=== PATIENT | female | born 1960 | race Two or more races ===

== ENCOUNTER 2016-05-28 13:07 | Inpatient (IN) | payer OTHER ==
[2016-05-28 14:00] VITALS: BMI 22.4
--- NOTE | 2016-05-28 18:55 | HP ---
CIWA Score - CIWA Score Nausea/Vomitin Muscle Tremors: 3 Anxiety: 3 Agitation: 3 Paroxysmal Sweats: 2 Orientation: 0-Oriented Tacttile Disturbances: 2-Mild Itch/Numbness/Burn Auditory Disturbances: 2-Mild Harshness/Frighten Visual Disturbances: 2-Mild Sensitivity Headache: 2-Mild CIWA-Ar Total Score: 22 Admission ROS BHS - HPI Chief Complaint: i need help to stop drinking alcohol,marijuana,cocaine Allergies/Adverse Reactions: Allergies Allergy/AdvReac Type Severity Reaction Status Date / Time No Known Allergies Allergy Verified 05/28/16 18:40 History of Present Illness: this 55 years old female with alcohol dependence,marijuana,cocaine,withdrawal symptom,last detox 2016 sleep hollow syncope weight loss nicotine dependence hiv since 08/22 longest period of sobriety 1 year and 6 months bipolar disorder and depression Exam Limitations: No Limitations - Ebola screening Have you traveled outside of the country in the last 21 days: No Have you been sick,other than usual withdrawal symptoms: No - Review of Systems Constitutional: Loss of Appetite, Malaise, Night Sweats, Changes in sleep, Unintentional Wgt. Loss EENT: reports: Nose Congestion Respiratory: reports: No Symptoms reported, Other (asthma) Cardiac: reports: No Symptoms Reported GI: reports: Diarrhea, Nausea, Vomiting, Abdominal cramping : reports: No Symptoms Reported Musculoskeletal: reports: Back Pain, Muscle Pain Integumentary: reports: Dryness Neuro: reports: Headache, Tremors Endocrine: reports: No Symptoms Reported Hematology: reports: Anemia Psychiatric: reports: Depressed, other (bipolar disorder) Patient History - Patient Medical History Hx Anemia: Yes (no med) Hx Asthma: Yes (on albuterol inhaler) Hx Chronic Obstructive Pulmonary Disease (COPD): No Hx Cancer: No Hx Cardiac Disorders: No Hx Congestive Heart Failure: No Hx Hypertension: No Hx Hypercholesterolemia: No Hx Pacemaker: No HX Cerebrovascular Accident: No Hx Seizures: No Hx Dementia: No Hx Diabetes: No Hx Gastrointestinal Disorders: No Hx Liver Disease: No Hx Genitourinary Disorders: No Hx Sexually Transmitted Disorders: No Hx Renal Disease (ESRD): No Hx Thyroid Disease: No Hx Human Immunodeficiency Virus (HIV): Yes (since 08/2006 on med) Hx Hepatitis C: No Hx Depression: Yes Hx Suicide Attempt: Yes Hx Bipolar Disorder: Yes (walk in the moving traffic) Other Medical History: no suicidal,no homicidal - Patient Surgical History Hx Orthopedic Surgery: Yes (fx of right ankle 1988 post fall) - PPD History Previous Implant?: Yes Documented Results: Negative w/o proof Implanted On Prior R Admission?: No PPD to be Administered?: Yes - Reproductive History Patient is a Female of Child Bearing Age (11 -55 yrs old): Yes Patient : No - Smoking Cessation Smoking history: Current every day smoker Have you smoked in the past 12 months: Yes Aproximately how many cigarettes per day: 7 Hx Chewing Tobacco Use: No Initiated information on smoking cessation: Yes 'Breaking Loose' booklet given: 05/28/16 - Substance & Tx. History Hx Alcohol Use: Yes Hx Substance Use: Yes Substance Use Type: Alcohol, Cocaine, Marijuana - Substances Abused Alcohol Route: Oral Frequency: Daily Amount used: 1 pint of tomas/2 of 6 packs of 12 ozs Age of first use: 18 Date of Last Use: 05/28/16 Marijuana/Hashish Route: Smoking Frequency: Daily Amount used: 10$ Age of first use: 18 Date of Last Use: 05/27/16 Cocaine Route: Smoking Frequency: 1-3 times last 30 days Amount used: 60$ Age of first use: 40 Date of Last Use: 05/27/16 Family Disease History - Family Disease History Family Disease History: Other: Father (alcohol,), Mother (alcohol) Admission Physical Exam BHS - Vital Signs Vital Signs: Vital Signs - 24 hr 05/28/16 13:57 Temperature 98.0 F Pulse Rate 103 H Respiratory 20 Rate Blood Pressure 130/86 - Physical General Appearance: Yes: Moderate Distress, Thin, Tremorous, Irritable, Sweating , Anxious HEENTM: Yes: Normal ENT Inspection, ISI, Pharynx Normal Respiratory: Yes: Lungs Clear, Normal Breath Sounds, No Respiratory Distress Neck: Yes: Supple, Trachea in good position Breast: Yes: Breast Exam Deferred Cardiology: Yes: Within Normal Limits, Regular Rhythm, Regular Rate, S1, S2 Abdominal: Yes: Within Normal Limits, Normal Bowel Sounds, Non Tender, Flat, Soft Genitourinary: Yes: Within Normal Limits Back: Yes: Within Normal Limits, Muscle Spasm Musculoskeletal: Yes: Back pain, Muscle Pain Extremities: Yes: Normal Range of Motion, Tremors Neurological: Yes: 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 II-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 NML intact, Fully Oriented, Alert, Motor Strength 5/5 Integumentary: Yes: Dry Lymphatic: Yes: Within Normal Limits - Diagnostic (1) Alcohol dependence with uncomplicated withdrawal Current Visit: Yes Status: Acute (2) Cocaine dependence Current Visit: Yes Status: Acute (3) Cannabis dependence Current Visit: Yes Status: Acute (4) Syncope Current Visit: Yes Status: Acute (5) Weight loss Current Visit: Yes Status: Acute (6) Nicotine dependence Current Visit: Yes Status: Acute (7) HIV (human immunodeficiency virus infection) Current Visit: Yes Status: Acute (8) Bipolar disorder Current Visit: Yes Status: Acute (9) Depression Current Visit: Yes Status: Acute (10) Asthma Current Visit: Yes Status: Acute (11) Anemia Current Visit: Yes Status: Acute Cleared for Admission S - Detox or Rehab [facility] Level of Care: Medically Managed Detox Regimen/Protocol: Librium [facility] Breath Alcohol Content Breath Alcohol Content: 0.231 Urine Pregancy Test - Result Urine Test Results: Negative- NO Line Present Urine Drug Screen - Results Drug Screen Negative: No Urine Drug Screen Results: FREIDS-Cocaine
[2016-05-28] MEDS ORDERED: MENTHOL/PHENOL 1 EACH UD MM PRN (19:14)
[2016-05-28] MEDS ORDERED: MAGNESIUM HYDROX 2400MG/30ML ORAL SUSPENSION 30 ML CUP PO PRN (19:14)
[2016-05-28] MEDS ORDERED: LOPERAMIDE HCL 2 MG CAPSULE PO PRN (19:14)
[2016-05-28] MEDS ORDERED: guaiFENesin/D-METHORPHAN HB 10 ML UNIT-DOSE CUPS PO PRN (19:14)
[2016-05-28] MEDS ORDERED: ACETAMINOPHEN 325 MG TABLET (FP) PO PRN (19:14)
[2016-05-28] MEDS ORDERED: hydrOXYzine PAMOATE 25 MG CAPSULE (FP) PO PRN (19:14)
[2016-05-28] MEDS ORDERED: chlordiazePOXIDE HCL 25 MG CAPSULE PO PRN (19:14)
[2016-05-28] MEDS ORDERED: chlordiazePOXIDE HCL 25 MG CAPSULE PO ONE (19:14)
[2016-05-28] MEDS ORDERED: MAG HYDROX/AL HYDROX/SIMETH 30 ML UNIT-DOSE CUP PO PRN (19:14)
[2016-05-28] MEDS ORDERED: P-EPHED 60MG/TRIPROLIDI 2.5MG TABLET PO PRN (19:14)
[2016-05-28] MEDS ORDERED: diphenhydrAMINE HCL 50 MG CAPSULE PO PRN (19:14)
[2016-05-28] MEDS ORDERED: IBUPROFEN 400 MG TABLET (FP) PO PRN (19:14)
[2016-05-28] MEDS ORDERED: MAGNESIUM CITRATE 300 ML BOTTLE PO PRN (19:14)
[2016-05-28] MEDS ORDERED: NICOTINE POLACRILEX 2 MG GUM BC PRN (19:14)
[2016-05-28] MEDS ORDERED: diphenhydrAMINE HCL 25 MG CAPSULE (FP) PO SCH (19:30)
[2016-05-28] MEDS: CYPROHEPTADINE HCL 4 MG TABLET PO SCH (22:16)
[2016-05-28] MEDS: chlordiazePOXIDE HCL 25 MG CAPSULE PO SCH (22:16)
[2016-05-28] MEDS: THIAMINE HCL 100 MG TABLET (FP) PO SCH (22:17)
[2016-05-29 00:39] LABS: URINE APPEARANCE CLEAR; URINE BILIRUBIN NEGATIVE (NEGATIVE); URINE BLOOD NEGATIVE (NEGATIVE); URINE COLOR COLORLESS; URINE GLUCOSE (UA) NEGATIVE (NEGATIVE); URINE KETONE NEGATIVE (NEGATIVE); URINE LEUK ESTERASE NEGATIVE (NEGATIVE); URINE NITRITE NEGATIVE (NEGATIVE); URINE PROTEIN NEGATIVE (NEGATIVE); URINE UROBILINOGEN NEGATIVE E.U./dl (0.2-1.0)
[2016-05-29] MEDS: chlordiazePOXIDE HCL 25 MG CAPSULE PO SCH ×4 (06:26→22:07)
[2016-05-29] MEDS: CYPROHEPTADINE HCL 4 MG TABLET PO SCH ×4 (06:31→22:07)
[2016-05-29] MEDS: AMOX TR/POT CLAV 875MG/125MG TABLETS (FP) PO SCH ×2 (09:48→18:03)
[2016-05-29] MEDS ORDERED: AMOX TR/POT CLAV 875MG/125MG TABLETS (FP) PO SCH (10:00)
[2016-05-29] MEDS: ATAZANAVIR SO4 300 MG CAPSULE PO SCH (10:12)
[2016-05-29] MEDS: SULFAMETHOXAZOLE/TRIMETHOPRIM 800MG/160MG D.S. TABLET PO SCH (10:12)
[2016-05-29] MEDS: PRENATAL VITAMINS W/ FOLIC ACID TABLET (FP) PO SCH (10:12)
[2016-05-29 10:20] LABS: MCH 28.8 pg (25.7-33.7); MCHC 31.8 g/dl (32.0-36.0); MEAN CELL VOLUME 90.8 fl (80-96); MEAN PLT VOLUME 9.5 fl (7.5-11.1); PLATELET COUNT 146 K/MM3 (134-434); RDW 13.9 % (11.6-15.6); WHITE BLOOD COUNT 4.7 K/mm3 (4.0-10.0)
--- NOTE | 2016-05-29 10:22 | EKG ---
Test Reason : Blood Pressure : / mmHG Vent. Rate : 075 BPM Atrial Rate : 075 BPM P-R Int : 144 ms QRS Dur : 088 ms QT Int : 410 ms P-R-T Axes : 066 035 041 degrees QTc Int : 457 ms NORMAL SINUS RHYTHM T WAVE ABNORMALITY, CONSIDER ANTERIOR ISCHEMIA POOR R WAVE PROGRESSION ABNORMAL ECG NO PREVIOUS ECGS AVAILABLE Confirmed by JENNI WANG MD ([id number]) on 05/29/2016 10:22:23 AM Referred By: Confirmed By:JENNI WANG MD
[2016-05-29 12:03] LABS: ALBUMIN 3.4 g/dl (3.4-5.0); ALK PHOS 123 U/L (45-117); ANION GAP 10 (8-16); BILIRUBIN,TOTAL 1.2 mg/dL (0.2-1.0); CALCIUM 8.9 mg/dL (8.5-10.1); CO2 29 mmol/L (21-32); CREATININE 0.7 mg/dL (0.55-1.02); GLUCOSE,RANDOM 84 mg/dL (74-106); SGOT/AST 55 U/L (15-37); SGPT/ALT 36 U/L (12-78)
[2016-05-29] MEDS: FLUCONAZOLE 100 MG TABLET (UD) PO SCH (12:10)
[2016-05-29] MEDS: RITONAVIR 100 MG TABLET PO SCH (12:11)
[2016-05-29] MEDS: EMTRICITABINE 200MG/TENOFOVIR 300MG PO SCH (12:11)
--- NOTE | 2016-05-29 13:27 | CONSULT ---
[facility] Psychiatric Consult - Data Date of interview: 05/29/16 Admission source: [facility] Identifying data: First admission to [facility] for this 55 y/o AA female seeking detox treatment for alcohol,cocaind and marjuana dependence.Patient is single,a mother of nine,domiciled,unemployed and supported on Public Assistance. Substance Abuse History: - Smoking Cessation. Smoking history: Current every day smoker. Have you smoked in the past 12 months: Yes. Aproximately how many cigarettes per day: 7. Hx Chewing Tobacco Use: No. Initiated information on smoking cessation: Yes. 'Breaking Loose' booklet given: 05/28/16. - Substance & Tx. History. Hx Alcohol Use: Yes. Hx Substance Use: Yes. Substance Use Type : Alcohol, Cocaine, Marijuana. - Substances Abused. Alcohol. Route: Oral. Frequency: Daily. Amount used: 1 pint of tomas/2 of 6 packs of 12 ozs. Age of first use: 18. Date of Last Use: 05/28/16. Marijuana/Hashish. Route: Smoking. Frequency: Daily. Amount used: 10$. Age of first use: 18. Date of Last Use: 05/27/16. Cocaine. Route: Smoking. Frequency: 1-3 times last 30 days. Amount used: 60$. Age of first use: 40. Date of Last Use: 05/27/16. Confirmed by patient. Medical History: HIV infection since 2006 (on ART agents),bronchial asthma and anemia. Psychiatric History: History of multiple psychiatric hospitalizations.Known to [facility].Diagnosed with Bipolar Disorder.Patient reports that she was followed at the [facility] health clinic in [facility].Dropped out of outpatient treatment months ago.Medications (not taken for months) used to consist of haldol and trazodone.Doses not recalled.Patient Ms Marie admits to a remote history of suicide attempt (deliberate exposure to oncoming traffic) .She declines to resume psychotropic drugs with the exception of detox medications. Physical/Sexual Abuse/Trauma History: Patient denies history of sexual abuse. Additional Comment: Urine Drug Screen Results: FREDIS-Cocaine.Noted. Mental Status Exam - Mental Status Exam Alert and Oriented to: Time, Place, Person Cognitive Function: Good Patient Appearance: Unkempt, Disheveled (noted patches of alopecia) Mood: Hopeful, Euthymic Affect: Appropriate, Normal Range Patient Behavior: Fatigued, Appropriate, Cooperative Speech Pattern: Clear, Appropriate Voice Loudness: Normal Thought Process: Goal Oriented Thought Disorder: Not Present Hallucinations: Denies Suicidal Ideation: Denies Homicidal Ideation: Denies Insight/Judgement: Poor Sleep: Poorly Appetite: Poor, Weight loss Muscle strength/Tone: Normal Gait/Station: Normal Psychiatric Findings - Problem List (White 1, 2,3) (1) Alcohol dependence with uncomplicated withdrawal Current Visit: Yes Status: Acute (2) Cannabis dependence Current Visit: Yes Status: Acute (3) Cocaine dependence Current Visit: Yes Status: Acute (4) Nicotine dependence Current Visit: Yes Status: Acute (5) Substance induced mood disorder Current Visit: Yes Status: Acute (6) Schizoaffective disorder Current Visit: Yes Status: Acute Comment: Self-report.No signs/symptoms elicited in this evaluation.No compliance with treatment for months. (7) Anemia Current Visit: Yes Status: Chronic (8) Asthma Current Visit: Yes Status: Chronic (9) HIV (human immunodeficiency virus infection) Current Visit: Yes Status: Chronic (10) Weight loss Current Visit: Yes Status: Chronic - Initial Treatment Plan Initial Treatment Plan: Psychoeducation.Detoxification.Observation.
--- NOTE | 2016-05-29 13:39 | PN ---
[facility] CIWA - CIWA Score Nausea/Vomitin Muscle Tremors: 3 Anxiety: 3 Agitation: 2 Paroxysmal Sweats: 1-Minimal Palms Moist Orientation: 0-Oriented Tacttile Disturbances: 1-Very Mild Itch/Numbness Auditory Disturbances: 1-Very Mild Visual Disturbances: 1-Very Mild Sensitivity Headache: 2-Mild CIWA-Ar Total Score: 17 BHS Progress Note (SOAP) Subjective: ALERT,IRRITABLE,ANXIOUS,INTERRUPTED SLEEP,TREMOR Objective: 05/29/16 13:37 Vital Signs Temperature 98.2 F 05/29/16 10:29 Pulse Rate 91 H 05/29/16 10:29 Respiratory Rate 20 05/29/16 10:29 Blood Pressure 132/85 05/29/16 10:29 O2 Sat by Pulse Oximetry (%) EKG NSR INVERTED T IN V1 TO V3 NO CHEST PAIN,NO SOB,NO DIZZINESS Laboratory Last Values WBC 4.7 K/mm3 (4.0-10.0) 05/29/16 07:00 RBC 4.42 M/mm3 (3.60-5.2) 05/29/16 07:00 Hgb 12.8 GM/dL (10.7-15.3) 05/29/16 07:00 Hct 40.2 % (32.4-45.2) 05/29/16 07:00 MCV 90.8 fl (80-96) 05/29/16 07:00 MCHC 31.8 g/dl (32.0-36.0) L 05/29/16 07:00 RDW 13.9 % (11.6-15.6) 05/29/16 07:00 Plt Count 146 K/MM3 (134-434) 05/29/16 07:00 MPV 9.5 fl (7.5-11.1) 05/29/16 07:00 Sodium 139 mmol/L (136-145) 05/29/16 07:00 Potassium 4.0 mmol/L (3.5-5.1) 05/29/16 07:00 Chloride 100 mmol/L (98-107) 05/29/16 07:00 Carbon Dioxide 29 mmol/L (21-32) 05/29/16 07:00 Anion Gap 10 (8-16) 05/29/16 07:00 BUN 5 mg/dL (7-18) L 05/29/16 07:00 Creatinine 0.7 mg/dL (0.55-1.02) 05/29/16 07:00 Creat Clearance w eGFR > 60 (>60) 05/29/16 07:00 Random Glucose 84 mg/dL (74-106) 05/29/16 07:00 Calcium 8.9 mg/dL (8.5-10.1) 05/29/16 07:00 Total Bilirubin 1.2 mg/dL (0.2-1.0) H 05/29/16 07:00 AST 55 U/L (15-37) H 05/29/16 07:00 ALT 36 U/L (12-78) 05/29/16 07:00 Alkaline Phosphatase 123 U/L (45-117) H 05/29/16 07:00 Total Protein 8.0 g/dl (6.4-8.2) 05/29/16 07:00 Albumin 3.4 g/dl (3.4-5.0) 05/29/16 07:00 Urine Color Colorless 05/28/16 23:30 Urine Appearance Clear 05/28/16 23:30 Urine pH 6.0 (5.0-8.0) 05/28/16 23:30 Ur Specific [place] 1.001 (1.001-1.035) 05/28/16 23:30 Urine Protein Negative (NEGATIVE) 05/28/16 23:30 Urine Glucose (UA) Negative (NEGATIVE) 05/28/16 23:30 Urine Ketones Negative (NEGATIVE) 05/28/16 23:30 Urine Blood Negative (NEGATIVE) 05/28/16 23:30 Urine Nitrite Negative (NEGATIVE) 05/28/16 23:30 Urine Bilirubin Negative (NEGATIVE) 05/28/16 23:30 Urine Urobilinogen Negative E.U./dl (0.2-1.0) 05/28/16 23:30 Ur Leukocyte Esterase Negative (NEGATIVE) 05/28/16 23:30 RPR Titer Nonreactive (NONREACTIVE) 05/29/16 07:00 Assessment: 05/29/16 13:38 WITHDRAWAL SYMPTOM Plan: CONTINUE DETOX
[2016-05-29] MEDS: THIAMINE HCL 100 MG TABLET (FP) PO SCH (22:07)
[2016-05-30] MEDS: CYPROHEPTADINE HCL 4 MG TABLET PO SCH ×3 (06:38→22:53)
[2016-05-30] MEDS: chlordiazePOXIDE HCL 25 MG CAPSULE PO SCH ×3 (06:38→17:10)
[2016-05-30] MEDS: AMOX TR/POT CLAV 875MG/125MG TABLETS (FP) PO SCH ×2 (07:16→17:08)
[2016-05-30] MEDS: FLUCONAZOLE 100 MG TABLET (UD) PO SCH (10:28)
[2016-05-30] MEDS: SULFAMETHOXAZOLE/TRIMETHOPRIM 800MG/160MG D.S. TABLET PO SCH (10:28)
[2016-05-30] MEDS: RITONAVIR 100 MG TABLET PO SCH (10:28)
[2016-05-30] MEDS: EMTRICITABINE 200MG/TENOFOVIR 300MG PO SCH (10:29)
[2016-05-30] MEDS: ATAZANAVIR SO4 300 MG CAPSULE PO SCH (10:29)
[2016-05-30] MEDS: PRENATAL VITAMINS W/ FOLIC ACID TABLET (FP) PO SCH (10:29)
--- NOTE | 2016-05-30 12:31 | PN ---
S CIWA - CIWA Score Nausea/Vomitin Muscle Tremors: 3 Anxiety: 2 Agitation: 2 Paroxysmal Sweats: 1-Minimal Palms Moist Orientation: 0-Oriented Tacttile Disturbances: 1-Very Mild Itch/Numbness Auditory Disturbances: 1-Very Mild Visual Disturbances: 1-Very Mild Sensitivity Headache: 2-Mild CIWA-Ar Total Score: 16 S Progress Note (SOAP) Subjective: ALERT,IRRITABLE,ANXIOUS,INTERRUPTED SLEEP,TREMOR Objective: 05/30/16 12:30 Vital Signs Temperature 98.6 F 05/30/16 10:11 Pulse Rate 91 H 05/30/16 10:11 Respiratory Rate 20 05/30/16 10:11 Blood Pressure 108/86 05/30/16 10:11 O2 Sat by Pulse Oximetry (%) Laboratory Last Values WBC 4.7 K/mm3 (4.0-10.0) 05/29/16 07:00 RBC 4.42 M/mm3 (3.60-5.2) 05/29/16 07:00 Hgb 12.8 GM/dL (10.7-15.3) 05/29/16 07:00 Hct 40.2 % (32.4-45.2) 05/29/16 07:00 MCV 90.8 fl (80-96) 05/29/16 07:00 MCHC 31.8 g/dl (32.0-36.0) L 05/29/16 07:00 RDW 13.9 % (11.6-15.6) 05/29/16 07:00 Plt Count 146 K/MM3 (134-434) 05/29/16 07:00 MPV 9.5 fl (7.5-11.1) 05/29/16 07:00 Sodium 139 mmol/L (136-145) 05/29/16 07:00 Potassium 4.0 mmol/L (3.5-5.1) 05/29/16 07:00 Chloride 100 mmol/L (98-107) 05/29/16 07:00 Carbon Dioxide 29 mmol/L (21-32) 05/29/16 07:00 Anion Gap 10 (8-16) 05/29/16 07:00 BUN 5 mg/dL (7-18) L 05/29/16 07:00 Creatinine 0.7 mg/dL (0.55-1.02) 05/29/16 07:00 Creat Clearance w eGFR > 60 (>60) 05/29/16 07:00 Random Glucose 84 mg/dL (74-106) 05/29/16 07:00 Calcium 8.9 mg/dL (8.5-10.1) 05/29/16 07:00 Total Bilirubin 1.2 mg/dL (0.2-1.0) H 05/29/16 07:00 AST 55 U/L (15-37) H 05/29/16 07:00 ALT 36 U/L (12-78) 05/29/16 07:00 Alkaline Phosphatase 123 U/L (45-117) H 05/29/16 07:00 Total Protein 8.0 g/dl (6.4-8.2) 05/29/16 07:00 Albumin 3.4 g/dl (3.4-5.0) 05/29/16 07:00 Urine Color Colorless 05/28/16 23:30 Urine Appearance Clear 05/28/16 23:30 Urine pH 6.0 (5.0-8.0) 05/28/16 23:30 Ur Specific [place] 1.001 (1.001-1.035) 05/28/16 23:30 Urine Protein Negative (NEGATIVE) 05/28/16 23:30 Urine Glucose (UA) Negative (NEGATIVE) 05/28/16 23:30 Urine Ketones Negative (NEGATIVE) 05/28/16 23:30 Urine Blood Negative (NEGATIVE) 05/28/16 23:30 Urine Nitrite Negative (NEGATIVE) 05/28/16 23:30 Urine Bilirubin Negative (NEGATIVE) 05/28/16 23:30 Urine Urobilinogen Negative E.U./dl (0.2-1.0) 05/28/16 23:30 Ur Leukocyte Esterase Negative (NEGATIVE) 05/28/16 23:30 RPR Titer Nonreactive (NONREACTIVE) 05/29/16 07:00 Assessment: 05/30/16 12:30 WITHDRAWAL SYMPTOM Plan: CONTINUE DETOX
[2016-05-30] MEDS: chlordiazePOXIDE 5 MG CAPSULE PO SCH (22:17)
[2016-05-30] MEDS: THIAMINE HCL 100 MG TABLET (FP) PO SCH (22:17)
[2016-05-31] MEDS: CYPROHEPTADINE HCL 4 MG TABLET PO SCH ×3 (06:18→21:07)
[2016-05-31] MEDS: chlordiazePOXIDE 5 MG CAPSULE PO SCH ×3 (06:18→17:33)
[2016-05-31] MEDS: AMOX TR/POT CLAV 875MG/125MG TABLETS (FP) PO SCH ×2 (07:28→17:33)
[2016-05-31] MEDS: RITONAVIR 100 MG TABLET PO SCH (10:25)
[2016-05-31] MEDS: EMTRICITABINE 200MG/TENOFOVIR 300MG PO SCH (10:25)
[2016-05-31] MEDS: FLUCONAZOLE 100 MG TABLET (UD) PO SCH (10:26)
[2016-05-31] MEDS: ATAZANAVIR SO4 300 MG CAPSULE PO SCH (10:26)
[2016-05-31] MEDS: SULFAMETHOXAZOLE/TRIMETHOPRIM 800MG/160MG D.S. TABLET PO SCH (10:26)
[2016-05-31] MEDS: PRENATAL VITAMINS W/ FOLIC ACID TABLET (FP) PO SCH (10:26)
--- NOTE | 2016-05-31 16:20 | PN ---
S Progress Note (SOAP) Subjective: Tremor, sweating, interrupted sleep, diarrhea Objective: 05/31/16 16:19 Last Vital Signs Temp Pulse Resp BP Pulse Ox 98.2 F 93 H 16 116/92 05/31/16 14:06 05/31/16 14:06 05/31/16 14:06 05/31/16 14:06 Laboratory Tests 05/28/16 05/29/16 05/29/16 23:30 07:00 07:00 WBC 4.7 RBC 4.42 Hgb 12.8 Hct 40.2 MCV 90.8 MCHC 31.8 L RDW 13.9 Plt Count 146 MPV 9.5 Sodium 139 Potassium 4.0 Chloride 100 Carbon Dioxide 29 Anion Gap 10 BUN 5 L Creatinine 0.7 Creat Clearance w eGFR > 60 Random Glucose 84 Calcium 8.9 Total Bilirubin 1.2 H AST 55 H ALT 36 Alkaline Phosphatase 123 H Total Protein 8.0 Albumin 3.4 Urine Color Colorless Urine Appearance Clear Urine pH 6.0 Ur Specific [place] 1.001 Urine Protein Negative Urine Glucose (UA) Negative Urine Ketones Negative Urine Blood Negative Urine Nitrite Negative Urine Bilirubin Negative Urine Urobilinogen Negative Ur Leukocyte Esterase Negative RPR Titer 05/29/16 07:00 WBC RBC Hgb Hct MCV MCHC RDW Plt Count MPV Sodium Potassium Chloride Carbon Dioxide Anion Gap BUN Creatinine Creat Clearance w eGFR Random Glucose Calcium Total Bilirubin AST ALT Alkaline Phosphatase Total Protein Albumin Urine Color Urine Appearance Urine pH Ur Specific [place] Urine Protein Urine Glucose (UA) Urine Ketones Urine Blood Urine Nitrite Urine Bilirubin Urine Urobilinogen Ur Leukocyte Esterase RPR Titer Nonreactive Labs noted Assessment: 05/31/16 16:19 Withdrawal symptoms Plan: Continue detox
[2016-05-31] MEDS: THIAMINE HCL 100 MG TABLET (FP) PO SCH (21:07)
[2016-05-31] MEDS: chlordiazePOXIDE HCL 10 MG CAPSULE PO SCH (22:43)
[2016-06-01] MEDS: chlordiazePOXIDE HCL 10 MG CAPSULE PO SCH ×2 (05:22→10:59)
[2016-06-01] MEDS: CYPROHEPTADINE HCL 4 MG TABLET PO SCH (05:22)
[2016-06-01] MEDS: AMOX TR/POT CLAV 875MG/125MG TABLETS (FP) PO SCH (07:53)
--- NOTE | 2016-06-01 09:29 | DS ---
[facility] Detox Discharge Summary Admission Date: 05/28/16 Discharge Date: 06/01/16 - History Present History: Alcohol Dependence - Physical Exam Results Vital Signs: Vital Signs Temperature 98.1 F 06/01/16 06:00 Pulse Rate 79 06/01/16 06:00 Respiratory Rate 16 06/01/16 06:00 Blood Pressure 114/78 06/01/16 06:00 O2 Sat by Pulse Oximetry (%) - Treatment Hospital Course: Detox Protocol Followed, Detoxed Safely, Responded well, Discharged Condition Good - Medication Discharge Medications: Ambulatory Orders Amoxicillin/Potassium Clav [Amox-Clav 875-125 mg Tablet] 1 each PO DAILY Atazanavir [Reyataz -] 300 mg PO DAILY 05/28/16 Cyproheptadine HCl 4 mg PO TID 05/28/16 Diphenhydramine HCl [Benadryl -] 25 mg PO Q6H 05/28/16 Emtricitabine/Tenofovir [Truvada] 1 tab PO DAILY 05/28/16 Fluconazole [Diflucan -] 100 mg PO DAILY 05/28/16 Haloperidol [Haldol -] 2 mg PO DAILY 05/28/16 Haloperidol [Haldol -] 5 mg PO HS 05/28/16 Ritonavir [Norvir -] 100 mg PO DAILY 05/28/16 Sulfamethoxazole/Trimethoprim [Bactrim Ds -] 1 tab PO DAILY 05/28/16 Trazodone HCl [Desyrel -] 150 mg PO HS 05/28/16 - Diagnosis (1) Alcohol dependence with uncomplicated withdrawal Current Visit: Yes Status: Chronic (2) Bipolar disorder Current Visit: Yes Status: Chronic Qualifiers: Current episode severity: unspecified (3) Cannabis dependence Current Visit: Yes Status: Chronic (4) Cocaine dependence Current Visit: Yes Status: Chronic Qualifiers: Complication of substance-induced condition: with unspecified complication (5) Nicotine dependence Current Visit: Yes Status: Chronic Qualifiers: Nicotine product type: cigarettes Substance use status: uncomplicated Qualified Code(s): F17.210 - Nicotine dependence, cigarettes, uncomplicated (6) Schizoaffective disorder Current Visit: Yes Status: Acute (7) Asthma Current Visit: Yes Status: Chronic (8) HIV (human immunodeficiency virus infection) Current Visit: Yes Status: Chronic - AMA Did Patient Leave Against Medical Advice: No
[2016-06-01] MEDS: FLUCONAZOLE 100 MG TABLET (UD) PO SCH (10:09)
[2016-06-01] MEDS: PRENATAL VITAMINS W/ FOLIC ACID TABLET (FP) PO SCH (10:09)
[2016-06-01] MEDS: RITONAVIR 100 MG TABLET PO SCH (10:09)
[2016-06-01] MEDS: EMTRICITABINE 200MG/TENOFOVIR 300MG PO SCH (10:09)
[2016-06-01] MEDS: SULFAMETHOXAZOLE/TRIMETHOPRIM 800MG/160MG D.S. TABLET PO SCH (10:10)
[2016-06-01] MEDS: ATAZANAVIR SO4 300 MG CAPSULE PO SCH (10:10)
[2016-06-01 10:33] VITALS: BP 114/87; PULSE 89; TEMP 97.7
== END 2016-06-01 11:37 | disposition home or self-care (01) | DRG 774 ==
LOC: YASAS 13:07 → Y6N 18:46
PROVIDERS: ADMIT Internal Medicine Addiction Medicine; ATTEND Internal Medicine Addiction Medicine
PROC: HZ2ZZZZ Detoxification Services for Substance Abuse Treatment (ICD-10-PCS; principal; 2016-05-28)
DX: F10.230 Alcohol dependence with withdrawal, uncomplicated (principal); F14.20 Cocaine dependence, uncomplicated; F12.20 Cannabis dependence, uncomplicated; F17.210 Nicotine dependence, cigarettes, uncomplicated; F31.9 Bipolar disorder, unspecified; F25.9 Schizoaffective disorder, unspecified; F19.24 Other psychoactive substance dependence with psychoactive substance-induced mood disorder; J45.909 Unspecified asthma, uncomplicated; Z21 Asymptomatic human immunodeficiency virus [HIV] infection status; Z87.898 Personal history of other specified conditions; Z86.79 Personal history of other diseases of the circulatory system; Z86.2 Personal history of diseases of the blood and blood-forming organs and certain disorders involving the immune mechanism
CPT/HCPCS: 36415; 80053; 81003; 85027; 86593; 93005; 93010